=== PATIENT | female | born 1945 | race Caucasian/White ===

== ENCOUNTER → 2020-06-05 | Outpatient (CLI) | payer MEDICARE, OTHER, BC | END | disposition home or self-care (01) | LOC: LABWHC1 09:59 | PROVIDERS: ATTEND Otolaryngology | DX: J30.89 Other allergic rhinitis (principal) | CPT/HCPCS: 36415 ==

== ENCOUNTER 2022-06-01 09:32 | Emergency (ER) | payer MEDICARE, OTHER, BC ==
[2022-06-01 09:58] VITALS: RESP 18; TEMP 97.6
[2022-06-01] MEDS ORDERED: SODIUM CHLORIDE 0.9% 500 ML 500 ML IV STA (11:25)
[2022-06-01] MEDS ORDERED: DICYCLOMINE 10 MG/ML 2 ML AMP IM STA (11:46)
--- NOTE | 2022-06-01 11:51 | ED ---
General Adult HPI - General Chief complaint: Nausea/Vomiting/Diarrhea Stated complaint: abd pain Time Seen by Provider: 06/01/22 11:25 Source: patient, family, RN notes reviewed, old records reviewed Limitations: no limitations - History of Present Illness Initial comments: This is a well-appearing 76-year-old female presents to the emergency room with complaints of white mucousy diarrhea 1 month with abdominal cramping. She does have history of irritable bowel disease. She was seen 2 weeks ago at [facility] for black diarrhea and had a CT scan done. At that time they treated her with antibiotics for diverticulitis. She states that she took these medications for 3 days and then stopped because it upset her stomach. She states that she did see her primary care doctor last week who put her on 1 week of prednisone which she finished yesterday. She states that she continues to have mucousy diarrhea 20-30 times a day watery and clear/white in nature. She denies any fevers. She states that she does have a torturous bowel and is unable to get colonoscopies per Dr. Lyles who has recommended she get a barium enema however she has deferred. -: week(s) (4) Location: abdomen Severity scale (1-10): 10 Consistency: constant Improves with: none Associated Symptoms: other (Diarrhea) Treatments Prior to Arrival: none - Related Data Previous Rx's Medication Instructions Recorded Dicyclomine [Bentyl] 20 mg PO TID #30 tablet 06/01/22 Allergies Allergy/AdvReac Type Severity Reaction Status Date / Time fentanyl Allergy Abdominal Verified 06/01/22 09:58 Pain Penicillins Allergy Unknown Verified 06/01/22 09:58 Childhood Review of Systems ROS Statement: Those systems with pertinent positive or pertinent negative responses have been documented in the HPI. ROS Other: All systems not noted in ROS Statement are negative. Past Medical History Past Medical History: Hypertension Past Surgical History: Cholecystectomy, Hysterectomy Additional Past Surgical History / Comment(s): cataract Smoking Status: Never smoker Past Alcohol Use History: None Reported Past Drug Use History: None Reported General Exam Limitations: no limitations General appearance: alert, in no apparent distress Head exam: Present: atraumatic Eye exam: Absent: scleral icterus, conjunctival injection Respiratory exam: Present: normal lung sounds bilaterally. Absent: respiratory distress, wheezes, rales, rhonchi, stridor, chest wall tenderness, accessory muscle use Cardiovascular Exam: Present: tachycardia GI/Abdominal exam: Present: soft, tenderness (Generalized). Absent: rigid Extremities exam: Present: normal inspection, normal capillary refill. Absent: pedal edema Neurological exam: Present: alert, oriented X3 Psychiatric exam: Present: normal affect, normal mood Skin exam: Present: warm, dry, normal color. Absent: cyanosis, diaphoretic, erythema, petechiae, pallor, mottled Course Vital Signs 06/01/22 06/01/22 09:54 13:40 Temperature 97.6 F Pulse Rate 105 H 84 Respiratory 18 18 Rate Blood Pressure 134/63 138/80 O2 Sat by Pulse 98 99 Oximetry Medical Decision Making - Medical Decision Making Patient was given IM Bentyl and 500 mL IV fluid bolus. Labs show white blood cell count slightly elevated likely due to her prednisone last week. There are electrolyte abnormalities. Urinalysis clear with no evidence of infection. She did have a CT of the abdomen last week at [facility]. She is concerned for possible obstruction that may be causing her diarrhea. X-ray was completed there is no evidence of obstruction. Overall nonobstructive bowel gas pattern. Patient denies nausea, vomiting or fevers. Vital signs are stable. Abdomen is soft. She was instructed to follow-up with her primary care doctor and Dr. Lyles for continuation of care. She was given a prescription for Bentyl for the abdominal spasms. Return to the emergency room with any new or concerning symptoms. Patient and family members are agreeable to this plan. Case discussed with Dr. Yeung. - Lab Data Result diagrams: 06/01/22 11:31 06/01/22 11:31 Lab Results 06/01/22 06/01/22 06/01/22 Range/Units 11:31 11:31 11:31 WBC 15.6 H (3.8-10.6) k/uL RBC 4.40 (3.80-5.40) m/uL Hgb 13.6 (11.4-16.0) gm/dL Hct 42.8 (34.0-46.0) % MCV 97.2 (80.0-100.0) fL MCH 30.9 (25.0-35.0) pg MCHC 31.8 (31.0-37.0) g/dL RDW 12.4 (11.5-15.5) % Plt Count 323 (150-450) k/uL MPV 7.8 Neutrophils % 84 % Lymphocytes % 10 % Monocytes % 3 % Eosinophils % 2 % Basophils % 1 % Neutrophils # 13.2 H (1.3-7.7) k/uL Lymphocytes # 1.6 (1.0-4.8) k/uL Monocytes # 0.5 (0-1.0) k/uL Eosinophils # 0.2 (0-0.7) k/uL Basophils # 0.1 (0-0.2) k/uL Sodium 138 (137-145) mmol/L Potassium 4.3 (3.5-5.1) mmol/L Chloride 100 (98-107) mmol/L Carbon Dioxide 27 (22-30) mmol/L Anion Gap 11 mmol/L BUN 18 H (7-17) mg/dL Creatinine 0.87 (0.52-1.04) mg/dL Est GFR (CKD-EPI)AfAm 76 (>60 ml/min/1.73 sqM) Est GFR (CKD-EPI)NonAf 66 (>60 ml/min/1.73 sqM) Glucose 117 H (74-99) mg/dL Plasma Lactic Acid Adolph 1.1 (0.7-2.0) mmol/L Calcium 9.3 (8.4-10.2) mg/dL Total Bilirubin 0.4 (0.2-1.3) mg/dL AST 25 (14-36) U/L ALT 20 (4-34) U/L Alkaline Phosphatase 80 (38-126) U/L Total Protein 7.8 (6.3-8.2) g/dL Albumin 4.4 (3.5-5.0) g/dL Amylase 53 (30-110) U/L Lipase 87 (23-300) U/L Urine Color Urine Appearance (Clear) Urine pH (5.0-8.0) Ur Specific Polk (1.001-1.035) Urine Protein (Negative) Urine Glucose (UA) (Negative) Urine Ketones (Negative) Urine Blood (Negative) Urine Nitrite (Negative) Urine Bilirubin (Negative) Urine Urobilinogen (<2.0) mg/dL Ur Leukocyte Esterase (Negative) Urine RBC (0-5) /hpf Urine WBC (0-5) /hpf Ur Squamous Epith Cells (0-4) /hpf 06/01/22 Range/Units 11:31 WBC (3.8-10.6) k/uL RBC (3.80-5.40) m/uL Hgb (11.4-16.0) gm/dL Hct (34.0-46.0) % MCV (80.0-100.0) fL MCH (25.0-35.0) pg MCHC (31.0-37.0) g/dL RDW (11.5-15.5) % Plt Count (150-450) k/uL MPV Neutrophils % % Lymphocytes % % Monocytes % % Eosinophils % % Basophils % % Neutrophils # (1.3-7.7) k/uL Lymphocytes # (1.0-4.8) k/uL Monocytes # (0-1.0) k/uL Eosinophils # (0-0.7) k/uL Basophils # (0-0.2) k/uL Sodium (137-145) mmol/L Potassium (3.5-5.1) mmol/L Chloride (98-107) mmol/L Carbon Dioxide (22-30) mmol/L Anion Gap mmol/L BUN (7-17) mg/dL Creatinine (0.52-1.04) mg/dL Est GFR (CKD-EPI)AfAm (>60 ml/min/1.73 sqM) Est GFR (CKD-EPI)NonAf (>60 ml/min/1.73 sqM) Glucose (74-99) mg/dL Plasma Lactic Acid Adolph (0.7-2.0) mmol/L Calcium (8.4-10.2) mg/dL Total Bilirubin (0.2-1.3) mg/dL AST (14-36) U/L ALT (4-34) U/L Alkaline Phosphatase (38-126) U/L Total Protein (6.3-8.2) g/dL Albumin (3.5-5.0) g/dL Amylase (30-110) U/L Lipase (23-300) U/L Urine Color Yellow Urine Appearance Clear (Clear) Urine pH 7.5 (5.0-8.0) Ur Specific Polk 1.020 (1.001-1.035) Urine Protein Negative (Negative) Urine Glucose (UA) Negative (Negative) Urine Ketones Trace H (Negative) Urine Blood Trace H (Negative) Urine Nitrite Negative (Negative) Urine Bilirubin Negative (Negative) Urine Urobilinogen <2.0 (<2.0) mg/dL Ur Leukocyte Esterase Small H (Negative) Urine RBC 4 (0-5) /hpf Urine WBC 2 (0-5) /hpf Ur Squamous Epith Cells <1 (0-4) /hpf Disposition Clinical Impression: Diarrhea Disposition: HOME SELF-CARE Condition: Good Instructions (If sedation given, give patient instructions): Acute Diarrhea (ED) Additional Instructions: Follow-up with your primary care 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 Return to the emergency room with any new or concerning symptoms. Prescriptions: Dicyclomine [Bentyl] 20 mg PO TID #30 tablet Is patient prescribed a controlled substance at d/c from ED?: No Referrals: Skyler Luis DO [Primary Care Provider] - 1-2 days Abigail Lyles MD [STAFF PHYSICIAN] - 1-2 days Time of Disposition: 13:22
[2022-06-01 11:53] LABS: Basophils # (A) 0.1 k/uL (0-0.2); Basophils % (A) 1 %; Eosinophils # (A) 0.2 k/uL (0-0.7); Eosinophils % (A) 2 %; HCT 42.8 % (34.0-46.0); HGB 13.6 gm/dL (11.4-16.0); Lymphocytes # (A) 1.6 k/uL (1.0-4.8); Lymphocytes % (A) 10 %; MCH 30.9 pg (25.0-35.0); MCHC 31.8 g/dL (31.0-37.0); MCV 97.2 fL (80.0-100.0); Mean Platelet Volume 7.8; Monocytes # (A) 0.5 k/uL (0-1.0); Monocytes % (A) 3 %; Neutrophils # (A) 13.2 k/uL (1.3-7.7); Neutrophils % (A) 84 %; Platelet Count 323 k/uL (150-450); RDW 12.4 % (11.5-15.5); WBC 15.6 k/uL (3.8-10.6)
--- NOTE | 2022-06-01 12:05 | XR ---
EXAMINATION TYPE: XR KUB DATE OF EXAM: 06/01/2022 COMPARISON: NONE HISTORY: Abdominal pain. TECHNIQUE: Upright KUB image of the abdomen is obtained with 2 radiographs. FINDINGS: Small bowel demonstrates no evidence for dilatation or air fluid levels. Gas and fecal material is seen in non-distended colon. No convincing evidence for pneumoperitoneum. No unusual calcifications. Cholecystectomy clips in the right upper quadrant. The lung bases are clear. The osseous structures are intact. IMPRESSION: Overall nonobstructive bowel gas pattern.
[2022-06-01 12:07] LABS: Albumin 4.4 g/dL (3.5-5.0); Calcium 9.3 mg/dL (8.4-10.2); Potassium 4.3 mmol/L (3.5-5.1); Total Bilirubin 0.4 mg/dL (0.2-1.3); Total Protein 7.8 g/dL (6.3-8.2)
[2022-06-01 13:15] LABS: Appearance,Urine Clear (Clear); Bilirubin,Urine Negative (Negative); Blood,Urine Trace (Negative); Color,Urine Yellow; Glucose,Urine (UA) Negative (Negative); Ketones,Urine Trace (Negative); Leukocyte Esterase,Urine Small (Negative); Nitrite,Urine Negative (Negative); PH, Urine 7.5 (5.0-8.0); Protein,Urine Negative (Negative); RBC,Urine 4 /hpf (0-5); Squamous Epithelial Cell,Urine <1 /hpf (0-4); Urobilinogen,Urine <2.0 mg/dL (<2.0); WBC,Urine 2 /hpf (0-5)
[2022-06-01 13:41] VITALS: BP 138/80; PULSE 84
== END 2022-06-01 13:47 | disposition home or self-care (01) ==
LOC: EC 09:32
DX: R19.7 Diarrhea, unspecified (principal); R10.9 Unspecified abdominal pain; Z88.5 Allergy status to narcotic agent; Z88.0 Allergy status to penicillin
CPT/HCPCS: 36415; 80053; 82150; 83605; 83690; 85025; 81001; 74018; 99284; 96372; J0500

== ENCOUNTER → 2022-07-21 | Outpatient (CLI) | payer MEDICARE, OTHER, BC ==
[2022-07-21 14:18] LABS: HCT 38.9 % (37.2-46.3); HGB 12.8 g/dL (12.0-15.0); MCH 31.4 pg (27.0-32.0); MCHC 32.9 g/dL (32.0-37.0); MCV 95.3 fL (80.0-97.0); Mean Platelet Volume 10.7 fL (9.5-12.2); NRBC Per 100 WBC 0 /100 WBCS (0.0-0.0); Platelet Count 332 X 10*3/uL (140-440); RBC 4.08 X 10*6/uL (4.10-5.20); RDW 12.9 % (11.5-14.5); WBC 6.24 X 10*3/uL (4.50-10.00)
[2022-07-21 14:49] LABS: ALT 18 U/L (8-44); AST 29 U/L (13-35); African American GFR (CKD) 71.2 (60.0-200.0); BUN/Creat Ratio 26.04 Ratio (12.00-20.00); Blood Urea Nitrogen 23.8 mg/dL (9.0-27.0); Calcium 10.1 mg/dL (8.7-10.3); Carbon Dioxide 25.9 mmol/L (20.0-27.5); Chloride 101 mmol/L (96-109); Chol/HDL Ratio 3.25 Ratio; Glucose 100 mg/dL (70-110); LDL Cholesterol,Calculated 152.2 mg/dL (0.0-131.0); Non-African American GFR(CKD) 61.4 (60.0-200.0); Potassium 5.4 mmol/L (3.5-5.5); Sodium 139 mmol/L (135-145)
== END | disposition home or self-care (01) ==
LOC: LABWHC1 09:10
PROVIDERS: ATTEND Internal Medicine Cardiovascular Disease
DX: E78.2 Mixed hyperlipidemia (principal); R06.02 Shortness of breath
CPT/HCPCS: 36415; 80048; 80061; 84443; 84450; 84460; 85027

== ENCOUNTER → 2024-03-02 | Outpatient (CLI) | payer MEDICARE, BC ==
--- NOTE | 2024-03-02 10:20 | CT ---
EXAMINATION TYPE: CT chest wo con CT DLP: 481.40 mGycm, Automated exposure control for dose reduction was used. DATE OF EXAM: 03/02/2024 8:46 AM COMPARISON: Chest radiograph 01/26/2024. CLINICAL INDICATION:Female, 78 years old with history of J84.10 PULMONARY FIBROSIS, UNSPECIFIED; PHH, PULMONARY FIBROSIS. HIGH RESOLUTION TECHNIQUE: Multiple axial images were obtained through the chest. Sagittal and coronal reformats were created for review. Contrast used: mL of (None if empty) Oral contrast used: (None if empty) FINDINGS: LUNGS/ PLEURA: No evidence for honeycombing. Scattered peripheral reticulations throughout the lungs without a predominance. No focal consolidation, pneumothorax or pleural fusion. Right intrafissural l ymph nodes along the major fissure. Apical scarring bilaterally. Peripheral atelectasis scattered thr oughout the lungs. Right middle lobe nodule measuring 8 mm. AIRWAY: No evidence of bronchiectasis or bronchial wall thickening. HEART: Size within normal limits. Moderate coronary artery atherosclerosis. MEDIASTINUM: Prominent right low paratracheal lymph node measuring up to 10 mm in short axis. VASCULATURE: No aortic aneurysm. MUSCULOSKELETAL: No acute osseous abnormalities SOFT TISSUES/LYMPH NODES: Unremarkable. LOWER NECK: No significant findings. UPPER ABDOMEN: Left simple appearing renal cysts. The gallbladder surgically absent. IMPRESSION: 1. No evidence for pulmonary fibrosis. Scattered peripheral reticulations which could represent sequ triston of prior infection versus NSIP . 2. Right middle lobe pulmonary nodule measuring 8 mm. Follow-up in 3 6 months versus PET/CT recommen ded.
== END | disposition home or self-care (01) ==
LOC: RADCTMAIN 08:14
PROVIDERS: ATTEND Internal Medicine Critical Care Medicine
DX: R91.1 Solitary pulmonary nodule (principal); J84.10 Pulmonary fibrosis, unspecified
CPT/HCPCS: 71250

== ENCOUNTER → 2024-09-04 | Outpatient (CLI) | payer MEDICARE, BC ==
--- NOTE | 2024-09-04 11:51 | CT ---
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 COMPARISON: CT chest 03/02/2024 TECHNIQUE: Multiple thin axial images were obtained through the chest at selected intervals. Prone and supine in spiratory along with supine expiratory images were submitted for review. Please note that due to inte rval acquisition images as defined by high-resolution CT protocol the entire lung parenchyma is not e valuated, therefore small nodular densities may not be visualized. Evaluation of vascular structures , viscera and lymphatics is limited due to lack of intravenous contrast administration. One or more C T dose reduction strategies were utilized during this examination. Total DLP 1060 mGycm. FINDINGS: LUNGS: No evidence of honeycombing or architectural distortion. Stable scattered peripheral reticulat ions throughout the lungs without apical or basilar predominance. No evidence of honeycombing. No bro nchiectasis. Stable subpleural right middle lobe 8 mm pulmonary nodule. Biapical pleural-parenchymal scarring. No acute area of infiltrative or consolidative change. LARGE AIRWAYS: Central airways are patent. No dynamic airway collapse on expiratory imaging. PLEURA: No pleural effusion or thickening. HEART AND PERICARDIUM: Heart is normal in size. There is no pericardial effusion. Mild coronary arter y calcifications present. MEDIASTINUM AND LANRE: No mediastinal or hilar lymphadenopathy or soft tissue mass. VESSELS: The thoracic aorta is normal in course and caliber. Mild atherosclerotic calcification of t he aorta and its branches. CHEST WALL AND DIAPHRAGM: Normal. LOWER NECK: Normal. UPPER ABDOMEN: Small hiatal hernia. Gallbladder is nonvisualized and may be surgically absent. Redem onstration of left renal cyst measuring up to 6.3 cm. Additional right renal cysts with largest measu ring up to 1.7 cm. MUSCULOSKELETAL: No acute fracture. IMPRESSION: 1. Stable scattered peripheral reticular opacities from prior CT chest suggesting nonspecific inters titial lung disease. 2. Stable right middle lobe pulmonary nodule measuring 8 mm. Follow-up CT chest in 12 months is sami mmended. [facility], , 09/04/2024 11:48 AM
== END | disposition home or self-care (01) ==
LOC: RADCTMAIN 10:40
PROVIDERS: ATTEND Internal Medicine Critical Care Medicine
DX: J84.9 Interstitial pulmonary disease, unspecified (principal); R91.1 Solitary pulmonary nodule; K44.9 Diaphragmatic hernia without obstruction or gangrene; I70.0 Atherosclerosis of aorta; N28.1 Cyst of kidney, acquired
CPT/HCPCS: 71250

== ENCOUNTER 2025-02-13 12:12 | Day surgery (SDC) | payer MEDICARE, BC ==
[2025-02-12 09:48] VITALS: BMI 20.9
[~2025-02-13 12:12] MED LIST: LACTATED RINGERS 1,000 ML IV SCH
[2025-02-13 12:36] VITALS: RESP 16; TEMP 98.6
[2025-02-13] MEDS: LACTATED RINGERS 1,000 ML IV SCH (12:45)
[2025-02-13] MEDS: LIDOCAINE 1% (10MG/ML) FOR IV START INTRADERMA PRN (12:45)
[2025-02-13] MEDS: IV FLUID CONTINUATION 1,000 ML IV ONE (12:45)
[2025-02-13] MEDS: ATROPINE SULFATE 0.4 MG/ML 1 ML VIAL IM ONE (12:50)
[2025-02-13] MEDS ORDERED: MIDAZOLAM 2 MG/2 ML VIAL ONE (13:39)
[2025-02-13] MEDS ORDERED: PROPOFOL 10 MG/ML 20 ML VIAL IV ONE (13:39)
[2025-02-13] MEDS ORDERED: KETAMINE HCL IN 0.9 % NACL 50 MG/5 ML SYRINGE ONE (13:39)
[2025-02-13] MEDS: LIDOCAINE 2% INJ 20 MG/ML INTRATRACH ONE (13:51)
[2025-02-13 14:22] VITALS: BP 131/64; PULSE 98
[2025-02-13 21:29] LABS: Appearance,BF Bloody (Clear); RBC, Body Fluid 14850 /UL (0-2000)
[2025-02-14 09:20] LABS: Nucleated Cells, Body Fluid 90 /UL
--- NOTE | 2025-02-14 16:36 | PCN ---
PROCEDURE NOTE PROCEDURES PERFORMED: Bronchoscopy, airway examination, therapeutic lavage, bronchoalveolar lavage, right middle lobe. PREOPERATIVE DIAGNOSES: Night sweats, fever, and hemoptysis. POSTOPERATIVE DIAGNOSES: Night sweats, fever, and hemoptysis. There was informed consent and universal timeout. The patient's procedure took place in room #1 [facility]. ANESTHESIA PROVIDED: Monitored anesthesia care. DESCRIPTION OF PROCEDURE: After the patient was adequately sedated and being fully monitored, the bronchoscope was inserted through the right nostril. It passed through the right nasopharynx into the oropharynx. The hypopharynx was identified and topicalized. The hypopharyngeal structures, including anterior commissure, true cords, false cords, arytenoids, piriform sinuses right and left, vallecula, and epiglottis, all appeared normal. The glottic opening was topicalized. The bronchoscope was pushed through the glottic opening into the trachea. Trachea appeared relatively normal. This was got down to the distal trachea. We noted blood emanating from both the right and left mainstem. We topicalized the airways. It was difficult clearing the airway blood, but we were able to use cold saline to do so. There was no obvious bleeding source. The airways were inflamed and erythematous. There was no dominant mass or tumor. Right upper lobe and its 3 segments, right middle lobe and its 2 segments, right lower lobe and its 5 segments were all evaluated, and on the left side, the left upper lobe proper and its 2 segments, the lingula and its 2 segments, and the left lower lobe and its 4 segments were also evaluated. Again, no dominant mass or tumor. There was bleeding throughout. Airways were inflamed and erythematous. The bronchoscope was wedged into the right middle lobe. We did a BAL. The patient tolerated the procedure well. The fluid will be sent for analysis. There was no immediate complication. Most of the blood in the airways was suctioned. Again, the patient tolerated procedure well without any complication. MMODL / IJN: [id number] /
== END 2025-02-13 15:09 | disposition home or self-care (01) ==
LOC: ORWHC2ENDO 12:12
PROVIDERS: ATTEND Internal Medicine Critical Care Medicine
DX: R04.2 Hemoptysis (principal); J47.9 Bronchiectasis, uncomplicated; J84.10 Pulmonary fibrosis, unspecified; I10 Essential (primary) hypertension; K58.9 Irritable bowel syndrome, unspecified; K21.9 Gastro-esophageal reflux disease without esophagitis; R05.3 Chronic cough; F41.9 Anxiety disorder, unspecified; Z79.899 Other long term (current) drug therapy; Z88.6 Allergy status to analgesic agent; Z88.1 Allergy status to other antibiotic agents; Z88.5 Allergy status to narcotic agent; Z88.0 Allergy status to penicillin; Z87.891 Personal history of nicotine dependence
CPT/HCPCS: 87798 ×3; 87496; 87498; 87529; 88108; 88305; 89050; 88312; 87502; 87634; 87070; 87205; 87116; 87102; 87206; 87635; 31624; J2250; J0461; J2704; J2003

== ENCOUNTER → 2025-02-22 | Outpatient (CLI) | payer MEDICARE, BC ==
[2025-02-23 02:18] LABS: Basophils # (A) 0.07 X 10*3/uL (0.00-0.10); Basophils % (A) 0.7 %; Eosinophils # (A) 0.15 X 10*3/uL (0.04-0.35); Eosinophils % (A) 1.4 %; HCT 38.5 % (37.2-46.3); HGB 11.9 g/dL (12.0-15.0); Lymphocytes # (A) 1.61 X 10*3/uL (0.90-5.00); Lymphocytes % (A) 15.4 %; MCH 30.2 pg (27.0-32.0); MCHC 30.9 g/dL (32.0-37.0); MCV 97.7 FL (80.0-97.0); Monocytes % (A) 9.6 %; NRBC Per 100 WBC 0 X 10*3/uL (0.00-0.01); Neutrophils # (A) 7.56 X 10*3/uL (1.80-7.70); Neutrophils % (A) 72.4 %; Platelet Count 364 X 10*3/uL (140-440); RBC 3.94 X 10*6/uL (4.10-5.20); RDW 12.8 % (11.5-14.5); WBC 10.44 X 10*3/uL (4.50-10.00)
[2025-02-23 02:31] LABS: Erythrocyte Sedimentation Rate 84 mm/Hr (0-30)
[2025-02-23 02:57] LABS: ALT 22 U/L (8-44); AST 29 U/L (13-35); Albumin/Globulin Ratio 1.11 Ratio (1.60-3.17); Alkaline Phosphatase 89 U/L (41-126); BUN/Creat Ratio 20.89 Ratio (12.00-20.00); Blood Urea Nitrogen 18.8 mg/dL (9.0-27.0); Calcium 9.4 mg/dL (8.7-10.3); Carbon Dioxide 22.1 mmol/L (21.6-31.8); Chloride 99 mmol/L (96-109); Globulin 3.6 g/dL (1.6-3.3); Glucose 106 mg/dL (70-110); Potassium 4.5 mmol/L (3.5-5.5); Sodium 136 mmol/L (135-145); Total Bilirubin 0.3 mg/dL (0.3-1.2); Total Protein 7.6 g/dL (6.2-8.2)
== END | disposition home or self-care (01) ==
LOC: LABWHC1 15:56
PROVIDERS: ATTEND Internal Medicine Critical Care Medicine
DX: J84.9 Interstitial pulmonary disease, unspecified (principal); R04.2 Hemoptysis
CPT/HCPCS: 36415; 80053; 84145; 85025; 85652; 86141; 87040

== ENCOUNTER → 2025-03-23 | Outpatient (CLI) | payer MEDICARE, BC ==
--- NOTE | 2025-03-25 15:20 | PE ---
EXAMINATION TYPE: PET CT fusion skull to thigh DATE OF EXAM: 03/23/2025 COMPARISON: CTA chest 03/01/2025 Prior PET/CT: No prior PET/CT at this location. CLINICAL INDICATION: Female, 79 years old with history of R91.8 LUNG MASS, TECHNIQUE: Following the intravenous administration of 10.89 mCi of F-18 FDG, whole body images are performed PET CT fusion skull to thigh. Images are reviewed on the computer in the coronal, axial, a nd sagittal planes. Reconstructed rotating images are created on independent workstation and reviewe d on the computer. A localization and attenuation correction CT is performed in conjunction with th e PET scan. DLP: 636.7 mGycm SCAN: Initial Blood glucose: 81 mg/dL Average Mediastinum SUV: 2.18 Average Liver SUV: 3.12 FINDINGS: NECK: No abnormal uptake THORAX: No abnormal uptake. ABDOMEN: No abnormal uptake PELVIS: No abnormal uptake OSSEOUS STRUCTURES: No abnormal uptake LOCALIZATION CT: Previous right apical mass has cavitation with thin valdovinos on the current exam. Infec tious etiology should be considered. Recommend short-term follow-up CT chest. Some mild pleural thick ening may be along the posterior lateral right apex. No suspicious uptake within mediastinal adenopat hy. Note is made of coronary artery calcification. COMPARISON: Masslike area at the right apex has resolved IMPRESSION: 1. No suspicious uptake to suggest primary or metastatic neoplasm within the chest or elsewhere withi n the whole body image. 2. Cavitation of previous density at the right apex. Consider short-term follow-up CT chest in 3 felix hs. [facility], , 03/25/2025 3:18 PM
== END | disposition home or self-care (01) ==
LOC: RADPETMAIN 12:08
PROVIDERS: ATTEND Internal Medicine Critical Care Medicine
DX: R91.8 Other nonspecific abnormal finding of lung field (principal); J98.4 Other disorders of lung
CPT/HCPCS: 78815; A9552